=== PATIENT | female | born 1955 | race Caucasian/White ===

== ENCOUNTER 2025-03-15 08:52 | Emergency (ER) | payer MEDICARE, OTHER ==
[~2025-03-15] VITALS: Ht 165.1 cm; Wt 68.2 kg
[2025-03-15 09:21] VITALS: TEMP 97.8
[2025-03-15] MEDS: KETOROLAC 30 MG/ML 1 ML VIAL IV ONE (10:04)
[2025-03-15 10:12] LABS: BASO # 0.0 10^3/uL (0.0-0.2); BASO % 0.3 % (0.0-1.0); EOS # 0.0 10^3/uL (0.0-0.5); EOS % 0.1 % (0.0-3.0); LYMPH # 0.9 10^3/uL (1.5-5.0); LYMPH % 8.5 % (24.0-44.0); MONO # 0.6 10^3/uL (0.0-0.8); MONO % 5.9 % (2.0-8.0); NEUTROPHILS # 8.5 10^3/uL (1.5-8.5); NEUTROPHILS % 84.9 % (36.0-66.0); PLATELET COUNT, AUTOMATED 219 10^3/uL (150-450)
[2025-03-15 10:13] LABS: KETONE, URINE AUTO RFX 1+ mg/dL (NEGATIVE); NITRITE, URINE AUTO RFX NEGATIVE (NEGATIVE); RBC, URINE AUTO RFX 3 /HPF (0-3); SQUAM EPITHELIAL CELL UR AURFX 4 /HPF (0-6); WBC, URINE AUTO RFX 2 /HPF (0-3)
[2025-03-15 10:21] LABS: LEUKOCYTE ESTERASE UR AUTO RFX TRACE (NEGATIVE)
[2025-03-15 10:42] LABS: CALCIUM LEVEL 9.0 MG/DL (8.3-10.6); CARBON DIOXIDE LEVEL 28.0 MMOL/L (20-31); CHLORIDE LEVEL 100.0 MMOL/L (98-107); CREATININE FOR GFR 1.44 MG/DL (0.55-1.30); GLOMERULAR FILTRATION RATE 39.1 (>39); POTASSIUM SERUM 3.2 MMOL/L (3.5-5.1); SODIUM LEVEL 142.0 MMOL/L (136-145)
[2025-03-15] MEDS ORDERED: ISOVUE-370 76% 100 ML VIAL As Ordered ONE (12:56)
[2025-03-15 12:58] LABS: ALT/SGPT 31.0 U/L (7.0-40); AST/SGOT 34.0 U/L (<34)
[2025-03-15] MEDS ORDERED: ONDA-282 PO (16:19)
[2025-03-15] MEDS ORDERED: PERC5TAB12 PO (16:19)
[2025-03-15] MEDS ORDERED: TAMS-18 PO (16:19)
[2025-03-15] MEDS: TAMSULOSIN 0.4 MG CAP PO ONE (16:26)
[2025-03-15] MEDS: POTASSIUM CHLORIDE 10MEQ SR TABLET PO ONE (16:27)
[2025-03-15] MEDS: ONDANSETRON 4MG ORAL DISINTEGRATING TAB PO ONE (16:37)
[2025-03-15] MEDS: OXYCODONE/APAP 5MG/325MG(HOME DOSE PACK) PO ONE (16:39)
[2025-03-15 16:45] VITALS: BP 160/91; O2SAT 98
== END 2025-03-15 17:10 | disposition home or self-care (01) ==
LOC: M ED 08:52
DX: N20.1 Calculus of ureter (principal); N17.9 Acute kidney failure, unspecified; N28.1 Cyst of kidney, acquired; I25.10 Atherosclerotic heart disease of native coronary artery without angina pectoris; I10 Essential (primary) hypertension; E78.5 Hyperlipidemia, unspecified; Z95.5 Presence of coronary angioplasty implant and graft; Z87.891 Personal history of nicotine dependence; F12.10 Cannabis abuse, uncomplicated
CPT/HCPCS: 74176; 74177; 80048; 80076; 81001; 83690; 85025; 87086; 96374; 99285; J1885; Q9967